=== PATIENT | male | born 1955 | race Caucasian/White ===

== ENCOUNTER 2016-10-09 06:16 | Day surgery (SDC) | payer BC ==
[2016-10-08 14:39] LABS: HEMATOCRIT 38.3 % (40.0-51.0); HEMOGLOBIN 13.4 g/dL (13.6-17.8)
[2016-10-08 14:55] LABS: ALBUMIN 3.9 G/DL (3.5-5.0); BUN (BLOOD UREA NITROGEN) 16 MG/DL (6-23); CALCIUM, SERUM 9.2 MG/DL (8.5-10.4); CHLORIDE, SERUM 108 MMOL/L (96-112); CO2 (CARBON DIOXIDE) 29 MMOL/L (24-34); CREATININE 1.19 MG/DL (0.70-1.30); GFR AFRICAN AMERICAN 75 ML/MIN (>=60); GFR NON AFRICAN AMERICAN 65 ML/MIN (>=60); POTASSIUM, SERUM 3.8 MMOL/L (3.5-5.3); SGOT(AST) 91 U/L (5-40); SGPT(ALT) 259 U/L (5-65); SODIUM, SERUM 141 MMOL/L (135-148); TOTAL BILIRUBIN 0.8 MG/DL (0-1.2); TOTAL PROTEIN 7.3 G/DL (6.0-8.5)
[2016-10-08 14:56] LABS: A/G RATIO 1.1 (0.7-1.9); ALKALINE PHOSPHATASE 181 U/L (45-117); GLOBULIN 3.4 G/DL (2.5-4.1); GLUCOSE, SERUM 95 MG/DL (60-99)
--- NOTE | ~2016-10-09 | OP ---
Record Of Operation [facility] [address]. [address] NAME: DARREN THURMAN GIO : 51 STATUS : [facility]#: [id number] AGE: 61 ADM/REG DATE : 10/09/16 MR#: [id number] REPORT SERV DATE: 10/12/16 DICTATED BY: BERLIN URENA DATE: 10/09/16 REPORT STATUS : Draft TRANSCRIBED BY: MODL DATE: 10/09/16 DATE OF PROCEDURE: 10/09/2016 PREOPERATIVE DIAGNOSIS: Bilateral inguinal hernia (direct). POSTOPERATIVE DIAGNOSIS: Bilateral inguinal hernia (direct). PROCEDURE: Laparoscopic reduction and mesh patch repair of bilateral inguinal hernia (direct). SURGEON: Berlin Urena M.D. DESCRIPTION OF OPERATIVE PROCEDURE: The patient was brought to operating suite, placed in supine position, underwent satisfactory general endotracheal anesthesia without incident. The skin of the abdomen was scrubbed, prepped, and draped in usual sterile fashion. 0.5% Marcaine with epinephrine was utilized as supplemental local anesthesia. Infraumbilical incision was performed dissecting through the skin and subcutaneous tissues to the umbilical fascia. Inferolateral lateral retraction of the left exposed the medial aspect of the left anterior rectus sheath. This was incised and then the medial aspect of the left rectus muscle itself was identified and retracted laterally exposing the posterior left rectus sheath. A preperitoneal dissection balloon was inserted posterior to the left rectus sheath to the level of the pubic tubercle. It was insufflated under direct camera visualization. This created a preperitoneal dissection plane bilaterally. This balloon was then removed and replaced with a structural balloon and CO2 was insufflated for pressures of 15 mmHg throughout the case. After adequate insufflation pressure achieved, two additional 5 mm trocars were placed under direct visualization in the infraumbilical midline. Completion of the preperitoneal dissection was performed bilaterally, skeletonizing the inferior epigastric vessels, the cord structures, and Hesselbach's triangle. On the left, there was a relatively large indirect defect, on the right a small indirect defect. No indirect defects were noted. Two separately placed pieces of Bard 3DMax polypropylene mesh, size large, oriented left and right were utilized. There were both placed in local anesthesia, rolled up and placed in the preperitoneal space. They were unrolled over the inguinal canals bilaterally and plicated in position with multiple firings of the 5 mm helical Tacker. This was successful in reinforcing Hesselbach's triangle and covering the internal ring, and allowing the cord structures to egress below the lower edge of the mesh. Preperitoneal space was allowed to collapse and CO2 was "milked" from the preperitoneal space. Trocars were removed. No muscular bleeding was noted. The structural balloon was removed. The left anterior rectus sheath was closed with [id number] suture of 0 Vicryl, subcutaneous tissue closure with interrupted 4-0 Vicryl, running subcuticular stitch 4-0 Record Of Operation [facility] [address] [facility] [place]. [address] NAME: DARREN THURMAN GIO : 51 STATUS : [facility]#: [id number] AGE: 61 ADM/REG DATE : 10/09/16 MR#: [id number] REPORT SERV DATE: 10/12/16 DICTATED BY: BERLIN URENA DATE: 10/09/16 REPORT STATUS : Draft TRANSCRIBED BY: YOLY DATE: 10/09/16 Vicryl for the skin. Dermabond and skin adhesive were placed. The patient tolerated the procedure well and he was returned to PACU in stable condition. At the termination of the procedure sponge, needle, lap, and instrument counts were correct x3. ESTIMATED BLOOD LOSS: Less than 10 mL. CHUCKY/YOLY Berlin Urena M.D. / [id number] CC: Farshad Henning DO
[~2016-10-09 06:16] MED LIST: ASAB PO; C1 PO; CIALIS5 MG PO; CORDARONE PO; FERROUS SULF325 M1 PO; LIPITOR10 PO; LIPITOR20 PO; LOP25 PO; PCET PO; VITC500 PO
[2016-10-09 07:17] LABS: ALBUMIN 3.9 G/DL (3.5-5.0); DIRECT BILIRUBIN 0.2 MG/DL (0.0-0.4); INDIRECT BILIRUBIN(NOT ORDER) 0.3 MG/DL (0.1-0.9); TOTAL BILIRUBIN 0.5 MG/DL (0-1.2); TOTAL PROTEIN 7.4 G/DL (6.0-8.5)
== END 2016-10-09 14:07 | disposition home or self-care (01) ==
LOC: SDC 06:16
PROVIDERS: Anesthesiology; Specialist
PROC: 0YUA4JZ Supplement Bilateral Inguinal Region with Synthetic Substitute, Percutaneous Endoscopic Approach (ICD-10-PCS; principal; 2016-10-09 07:45)
DX: K40.20 Bilateral inguinal hernia, without obstruction or gangrene, not specified as recurrent (principal); I25.2 Old myocardial infarction; I25.10 Atherosclerotic heart disease of native coronary artery without angina pectoris; D50.9 Iron deficiency anemia, unspecified; I34.0 Nonrheumatic mitral (valve) insufficiency; E78.00 Pure hypercholesterolemia, unspecified; E78.5 Hyperlipidemia, unspecified; Z79.82 Long term (current) use of aspirin; Z79.899 Other long term (current) drug therapy; Z98.890 Other specified postprocedural states
CPT/HCPCS: 80053; 80076; 85014; 85018; 88302; 93005; C1726; C1727; C1781; J0690; J1885; J2250; J2405; J2710; J3010

== ENCOUNTER 2016-11-08 02:11 | Observation (INO) | payer BC ==
--- NOTE | ~2016-11-08 | HP ---
History And Physical [place] [id number] [facility] [place]. [address] NAME: DARREN THURMAN GIO : 51 STATUS : [facility] PAT#: [id number] AGE: 61 ADM/REG DATE : 11/08/16 MR#: [id number] REPORT SERV DATE: 11/08/16 DICTATED BY: ANTIONE BURKS DATE: 11/08/16 REPORT STATUS : Draft TRANSCRIBED BY: YOLY DATE: 11/08/16 DATE OF ADMISSION: 11/08/2016 CLAIM APPROVER: Alessandra Boyd M.D. CHIEF COMPLAINT: Pleuritic chest pain with inspiration, onset at 9 p.m.; episode of asymptomatic paroxysmal atrial fibrillation while in [facility] that self-resolved. HISTORY OF PRESENT ILLNESS: This is a pleasant 61-year-old white male, well known to Dr. Boyd. He had a history of a minimally invasive mitral valve repair by Dr. Weber on 02/21/2016 with a brief episode of paroxysmal atrial flutter postop period. He had a coronary arteriogram preop, which revealed no significant coronary artery disease. He did have a subsequent transthoracic echocardiogram on 07/03/2016 that showed a normal left ventricular function, EF 55% to 60% with mild tricuspid regurgitation and stable mitral valve repair with trivial residual mitral regurgitation. He did have a dilated aortic root. He reports that he is status post bilateral inguinal hernia repair about a month ago. Last week, his left shoulder felt very sore and painful to touch or move. He reports he started to wear a sling due to the discomfort. He denies any fever. Yesterday at approximately 9 p.m., he had a pleuritic left-sided chest pain with inspiration. There was no exertional component to the chest pain. In the emergency room, they gave him prednisone, Dilaudid, nitro. He reports his symptoms fully resolved and "I now feel great and would like to go home." He can now move his left arm and take good deep breaths. He does tell me that he was told that he had elevated liver function tests and that Dr. Boyd discontinued Lipitor about one month ago. No prior myalgias. No myalgias now, except for as described above. No cough. No fever. PAST MEDICAL HISTORY: 1. Mitral valve severe regurgitation, status post minimally invasive mitral valve repair performed by Dr. Weber on 02/21/2016. 2. Erectile dysfunction. 3. Postop anemia. 4. Episode of postop paroxysmal atrial fibrillation that was asymptomatic. He was on Coumadin for 120 days and that was then discontinued post mitral valve repair. 5. No significant coronary artery disease per cath arteriogram on 01/24/2016. 6. Recent echocardiogram showing left ventricular systolic function is normal. Stable mitral valve repair. 7. History of elevated LFTs possibly secondary to Lipitor with Lipitor discontinued one month ago. 8. Hyperlipidemia. PAST SURGICAL HISTORY: 1. Minimally invasive mitral valve repair on 02/21/2016. 2. Bilateral inguinal hernia repair on 10/09/2016. SOCIAL HISTORY: . Denies tobacco, alcohol, or illicit drug use. History And Physical [address] [address] NAME: DARREN THURMAN GIO : 51 STATUS : [facility] PAT#: [id number] AGE: 61 ADM/REG DATE : 11/08/16 MR#: [id number] REPORT SERV DATE: 11/08/16 DICTATED BY: ANTIONE BURKS DATE: 11/08/16 REPORT STATUS : Draft TRANSCRIBED BY: YOLY DATE: 11/08/16 FAMILY HISTORY: Noncontributory for CAD. ALLERGIES: NO KNOWN ALLERGIES. HOME MEDICATIONS: Lists aspirin 81 mg p.o. daily. REVIEW OF SYSTEMS: The patient with no exertional chest pain. No palpitations or shortness of breath. No recent illness. As above per HPI, all other systems reviewed and negative. PHYSICAL EXAMINATION: VITAL SIGNS: Oxygen saturation 97% on room air, weight 74.3 kg, temperature 98.2, pulse 87, respiratory rate 19, and blood pressure 124/63. GENERAL: Well developed, well nourished. In no apparent distress. HEENT: Head normocephalic. No xanthelasma. Sclera clear, anicteric. Moist mucous membranes without pallor. No lymphadenopathy. No deficits noted. NECK: Trachea midline. Supple. No thyromegaly, JVD, or bruits. RESPIRATORY: Unlabored respirations. Breath sounds clear bilaterally to posterior auscultation, but slightly decreased in bilateral bases. No wheezes, rhonchi, or crackles. CARDIOVASCULAR: Regular rate and rhythm. No murmur, rub, or gallop appreciated. No chest wall tenderness to palpation. ABDOMEN: Soft, nontender, and nondistended. Active bowel sounds auscultated x4 quadrants. No organomegaly and no masses. No aortic bruit. EXTREMITIES: DP/PT and radial pulses 2+ bilaterally. No clubbing, cyanosis, or edema. SKIN: Warm, dry, intact. No rash. Normal turgor. MUSCULOSKELETAL: Moves all extremities in bed without difficulty. NEURO/PSYCH: Alert and oriented x3 with no acute distress. Affect appropriate to current situation. LABORATORY DATA: 1. BMP: Sodium 137, potassium 3.9, creatinine 1, glucose 104, calcium 9.2, magnesium 2. 2. CBC: White blood cell count mildly elevated at 11.3, hemoglobin 14.1, hematocrit 40.2, platelets 176. Troponin 0.03 x2. 3. CTA of the chest performed in the emergency department. a. No pulmonary emboli. b. Bibasilar atelectasis with areas of subsegmental consolidation. c. Small pericardial effusion and trace pleural effusions. d. Mild prominence of the esophageal wall, may represent reflux esophagitis. 4. Chest x-ray, blunting of costophrenic angles noted. 5. EKGs, personally interpreted x3. One with atrial fibrillation with RVR. Remaining EKGs with sinus rhythm/sinus rhythm with PACs and some with premature supraventricular complexes. There are diffuse ST-segment changes most consistent with pericarditis. Again, they are diffuse with no reciprocal changes. This is most consistent with probable pericarditis. 6. Telemetry, sinus rhythm with converting over to atrial fibrillation with RVR, rate approximately 150 for several hours that then self-converted to sinus rhythm with no History And Physical [address] [address] NAME: DARREN THURMAN GIO : 51 STATUS : [facility] PAT#: [id number] AGE: 61 ADM/REG DATE : 11/08/16 MR#: [id number] REPORT SERV DATE: 11/08/16 DICTATED BY: ANTIONE BURKS DATE: 11/08/16 REPORT STATUS : Draft TRANSCRIBED BY: YOLY DATE: 11/08/16 intervention. ASSESSMENT AND PLAN: 1. Pleuritic/atypical chest pain that resolved in the emergency department with prednisone. CTA of the chest revealed a small pericardial effusion. EKG most consistent with possible pericarditis. His symptoms fully resolved again with prednisone. There was no evidence of acute coronary syndrome. This patient recently underwent cardiac catheterization as mentioned above, which revealed no significant coronary artery disease. This is a clinical picture most consistent with a pleuritic chest pain with possible mild pericarditis with a small pericardial effusion. His symptoms have fully resolved with prednisone, and he is feeling well at this present time. Given recent cardiac evaluation with no significant coronary artery disease on cath arteriogram, there was no need to complete a stress test at this time. I have discussed with [facility] wafer line worker for [facility], Dr. Lopez, and the patient has also recently had an echocardiogram, which showed normal ejection fraction on 07/03/2016. We will discharge him to home with outpatient followup with Dr. Boyd in three to four weeks. I will initiate ibuprofen for several days. 2. Small pericardial effusion on CTA. Again, echocardiogram was recently performed, so this does not need to be repeated. CTA had revealed this and his symptoms are fully resolved. 3. Brief episode of asymptomatic paroxysmal atrial fibrillation that self-resolved. CHADS2-VASc score equals 0. We will continue him on aspirin therapy given CHADS2-VASc of 0 and prior history of anemia. I have initiated metoprolol 12.5 mg p.o. b.i.d. He is to follow up with Dr. Boyd in several weeks. 4. History of severe mitral regurgitation, status post mitral valve repair. This is noted. 5. Reported history of elevated LFTs. Statins were recently discontinued. He is to follow up with his primary care provider to have LFTs checked as previously ordered. I will trial him with ibuprofen for several days for pleuritic chest pain. After discussing with [facility] wafer line worker for [facility], I will defer a repeat LFT check for outpatient, and we will give ibuprofen for several days only until he follows up with his primary care provider. The patient will be discharged to home at this time. All questions are answered. SAHRA/YOLY Antione Burks NP / [id number] CC: Ursula López, MSN, ASTRONOMY INSTRUCTOR- DO Gurjit Montgomery M.D. History And Physical [address] [address] NAME: DARREN THURMAN GIO : 51 STATUS : [facility] PAT#: [id number] AGE: 61 ADM/REG DATE : 11/08/16 MR#: [id number] REPORT SERV DATE: 11/08/16 DICTATED BY: ANTIONE BURKS DATE: 11/08/16 REPORT STATUS : Draft TRANSCRIBED BY: YOLY DATE: 11/08/16 Kolby Lopez M.D., Ph.D, F.A.C.C. C. Angel Boyd M.D.
[2016-11-08 00:59] LABS: BASOPHILS 0.1 %; BASOPHILS ABSOLUTE 0.01 10/3/uL (0.0-0.16); EOSINOPHILS 0 %; HEMATOCRIT 40.2 % (40.0-51.0); HEMOGLOBIN 14.1 g/dL (13.6-17.8); IMMATURE GRANULOCYTES 0.1 %; IMMATURE GRANULOCYTES ABSOLUTE 0.01 10/3/uL (0.0-0.11); LYMPHOCYTES 10.5 %; LYMPHOCYTES ABSOLUTE 1.18 10/3/uL (0.67-4.30); MEAN CORPUS HGB CONC 35.1 g/dL (32.0-36.0); MEAN CORPUSCULAR HEMOGLOB 29.8 pg (26.0-34.0); MEAN PLATELET VOLUME 10.4 fL (9.2-13.0); MONOCYTES 11.4 %; MONOCYTES ABSOLUTE 1.29 10/3/uL (0.21-1.20); NEUTROPHILS 77.9 %; NEUTROPHILS ABSOLUTE 8.78 10/3/uL (2.02-8.40); PLATELET COUNT 176 10/3/uL (150-400); RBC DISTRIBUTION WIDTH 14.5 % (12.0-16.0); RED CELL COUNT 4.73 10/6/uL (4.7-6.1)
[2016-11-08 01:13] LABS: ER CBC TAT 0 Hrs 13 Mins; MANUAL DIFF NO %; WHITE BLOOD CELLS 11.3 10/3/uL (4.5-10.5)
[2016-11-08 01:15] LABS: BUN (BLOOD UREA NITROGEN) 18 MG/DL (6-23); CALCIUM, SERUM 9.2 MG/DL (8.5-10.4); CHEST PAIN PROFILE TAT 0 Hrs 15 Mins; CHLORIDE, SERUM 104 MMOL/L (96-112); CO2 (CARBON DIOXIDE) 25 MMOL/L (24-34); GFR AFRICAN AMERICAN 92 ML/MIN (>=60); GFR NON AFRICAN AMERICAN 80 ML/MIN (>=60); GLUCOSE, SERUM 104 MG/DL (60-99); POTASSIUM, SERUM 3.9 MMOL/L (3.5-5.3); SODIUM, SERUM 137 MMOL/L (135-148); TROPONIN I 0.03 NG/ML (<0.05)
[2016-11-08 01:20] LABS: INTERNATIONAL NORMAL RATI 1.2 UNITS (-); PARTIAL THROMBO TIME 32.8 SEC (22.5-37.2)
[2016-11-08 01:26] LABS: PROTIME (NOT ORD) 14.7 SEC (12.0-14.5)
[2016-11-08 02:09] LABS: D-DIMER QUANTITATIVE 1.39 ug/mLFEU (< 0.50)
[2016-11-08] MEDS ORDERED: LOP25 PO (13:22)
== END 2016-11-08 14:25 | disposition home or self-care (01) ==
LOC: ER 02:11 → CDU1 02:37
PROVIDERS: Hospitalist
DX: R07.89 Other chest pain (principal); I48.0 Paroxysmal atrial fibrillation; I31.3 Pericardial effusion (noninflammatory); N52.9 Male erectile dysfunction, unspecified; E78.5 Hyperlipidemia, unspecified; Z98.890 Other specified postprocedural states; Z79.82 Long term (current) use of aspirin
CPT/HCPCS: 71020; 71275; 80048; 83735; 84484; 85025; 85379; 85610; 85730; 93005; 96374; 96375; 99285; A9270-GY; G0378; J1170; J2405; Q9967